=== PATIENT | female | born 2000 | race Caucasian/White ===

== ENCOUNTER 2018-10-07 03:07 | Emergency (ER) | payer OTHER ==
[~2018-10-07] VITALS: Ht 157.5 cm; Wt 58.1 kg
[2018-10-07] MEDS ORDERED: [UNRECOGNIZED DRUG - OTHER] (03:24)
[2018-10-07] MEDS ORDERED: LEVSIN/SL0.125 MG SL (08:34)
== END 2018-10-07 09:41 | disposition home or self-care (01) ==
LOC: ER 03:07
DX: K50.90 Crohn's disease, unspecified, without complications (principal); R10.84 Generalized abdominal pain